=== PATIENT | female | born 1995 | race Two or more races ===

== ENCOUNTER 2017-02-25 21:40 | Inpatient (IN) | payer OTHER ==
[~2017-02-25] VITALS: Ht 160 cm; Wt 74.0 kg
[~2017-02-25 21:40] MED LIST: AMPI500C8 PO; CONCCAP2 PO
[2017-02-25] MEDS ORDERED: LACTATED RINGER'S 1000 ML INJ 1,000 ML IV PRN ×2 (22:26)
[2017-02-25] MEDS ORDERED: LACTATED RINGER'S 1000 ML INJ 1,000 ML IV SCH ×2 (22:26)
--- NOTE | 2017-02-25 22:26 | PD ---
HPI Chief Complaint 39 weeks and 3 days IUP Uterine contractions Travel History International Travel<30 Days: No Contact w/Intl Traveler<30Days: No Known Affected Area: No History of Present Illness HPI Pt is a 21 yo at 39 weeks and 3 days EDC 03-01-2017, care with [facility]. GBS positive in urine. Reports active movements. Denies vaginal bleeding or leaking. Weeks Gestation: 39 Para: 1 : 2 History Past Medical History Medical History: Denies Significant Hx Obstetric History Obstetric History previous term vaginal delivery 2015. GBS positive in urine Past Surgical History Surgical History: No Previous Surgery Family History Family History: Negative Social History Narrative Social History Moravian. Would prefer female for exams. Alcohol Use: No Tobacco Use: No Substance Abuse: No Allergies-Medications (Allergen,Severity, Reaction): Coded Allergies: No Known Allergies (Unverified , 02/15/17) Home Meds Active Scripts Ampicillin (Ampicillin) 500 Mg Cap, 500 MG PO QID for 10 Days, #40 CAP Prov:Yanni Mathias CNM [facility] 02/12/17 Vit W/ Fe Fum-Iron Po (Concept Dha 53.5-38-1 mg) 1 Cap Cap, 1 TAB PO DAILY, #30 BOTTLE 11 Refills Prov:Breanna Epperson [facility] 08/03/16 Review of Systems Except as stated in HPI: all other systems reviewed are Neg Physical Exam Narrative GENERAL: Well-nourished, well-developed patient. SKIN: Warm and dry. HEAD: Normocephalic and atraumatic. EYES: No scleral icterus. No injection or drainage. ENT: No nasal drainage noted. Mucous membranes pink. Airway patent. NECK: Supple, trachea midline. No JVD. CARDIOVASCULAR: Regular rate and rhythm without murmurs, gallops, or rubs. RESPIRATORY: Breath sounds equal bilaterally. No accessory muscle use. BREASTS: Bilateral exam showed no masses , no retractions, no nipple discharge. ABDOMEN/GI: Abdomen soft, non-tender, bowel sounds present, no rebound, no guarding Gravid to [39] weeks size Fundal Height: [39] GENITOURINARY: External Genitalia: intact and normal in appearance BUS glands: [wnl] Cervix: [soft] Dilatation: [6-7cm] per RN female Effacement: [80%] Station: [-1] Presentation: [vertex] Membranes: [intact] Uterine Contractions: [-] FHT's: Category: [I] Baseline: [140] Reactive: [-] Variability: [moderate] Decels: [none] EXTREMITIES: No cyanosis or edema. BACK: Nontender without obvious deformity. No CVA tenderness. NEUROLOGICAL: Awake and alert. Motor and sensory grossly within normal limits. Five out of 5 muscle strength in all muscle groups. Normal speech. Data Data Vital Signs Reviewed: Yes Group B Strep: Positive MDM Medical Record Reviewed: Yes Plan 21yo P1001 at 39 weeks and 3 days. Presents in labor 6-cm dilated per RN. GBS positive. Will admit for labor. Expectant care, will initiate GBS prophylaxis Diagnosis Diagnosis: Primary Impression: 39 weeks gestation of Additional Impression: Admitted to labor and delivery Helder Harvey MD Feb 25, 2017 22:26
[2017-02-25] MEDS ORDERED: MINERAL OIL 10 ML VIAL TOPICAL PRN ×2 (22:30)
[2017-02-25] MEDS ORDERED: CITRIC ACID-SODIUM CITRATE LIQ 30 ML UDC PO SCH ×2 (22:30)
[2017-02-25] MEDS ORDERED: OXYTOCIN 30 UNITS-500ML PREMIX 500 ML IV ONE ×2 (22:30)
[2017-02-25] MEDS ORDERED: LIDOCAINE HCL 1% 50 ML VIAL I-DERMAL PRN ×2 (22:30)
[2017-02-25] MEDS ORDERED: SODIUM CHLORID 0.9% 500 ML INJ 500 ML IV PRN ×2 (22:30)
[2017-02-25] MEDS ORDERED: LIDOCAINE HCL 1% 50 ML VIAL INFIL PRN ×2 (22:30)
[2017-02-25] MEDS ORDERED: PENICILLIN G POTASSIUM INJ 5,000,000 UNITS in SODIUM CHLORIDE 0.9% INJ 100 ML IV ONE ×4 (22:45)
[2017-02-25] MEDS ORDERED: SODIUM CHLOR 0.9% 1000 ML INJ 1,000 ML IV PRN ×2 (22:46)
[2017-02-25 23:00] LABS: AUTOMATED NEUTROPHIL # 11.6 TH/MM3 (1.8-7.7); BASOPHIL # 0.1 TH/MM3 (0-0.2); BASOPHIL % 0.4 % (0.0-2.0); EOSINOPHIL # 0.1 TH/MM3 (0-0.4); EOSINOPHIL % 0.4 % (0.0-4.0); HEMOGLOBIN 13.4 GM/DL (11.6-15.3); LYMPHOCYTE # 1.9 TH/MM3 (1.0-4.8); MEAN CELL VOLUME 89.6 FL (80.0-100.0); MEAN CORPUSCULAR HEMOGLOBIN 29.9 PG (27.0-34.0); MEAN CORPUSCULAR HGB CONC 33.4 % (32.0-36.0); MEAN PLATELET VOLUME 9.8 FL (7.0-11.0); MONO % 6.6 % (0.0-8.0); NEUT % 79.6 % (16.0-70.0); PLATELET COUNT 228 TH/MM3 (150-450); RED BLOOD COUNT 4.46 MIL/MM3 (4.00-5.30); RED CELL DISTRIBUTION WIDTH 14.1 % (11.6-17.2); WHITE BLOOD COUNT 14.6 TH/MM3 (4.0-11.0)
[2017-02-25 23:01] LABS: BILIRUBIN, URINE NEG (NEG); BLOOD, URINE NEG (NEG); GLUCOSE,URINE NEG (NEG); KETONE, URINE TRACE mg/dL (NEG); NITRITE,URINE NEG (NEG); PH, URINE 6.5 (5.0-8.5); SQUAMOUS EPITHELIAL CELL URINE 1 /hpf (0-5); URINE COLOR COLORLESS (YELLW/STRAW); URINE LEUKOCYTE ESTERASE MOD (NEG)
[2017-02-26 01:19] VITALS: RESP 18
[2017-02-26 01:20] VITALS: BP 107/60; PULSE 70
--- NOTE | 2017-02-26 02:41 | HHI.HP ---
HPI Chief Complaint Labor Date Seen: Feb 26, 2017 Travel History International Travel<30 Days: No Contact w/Intl Traveler<30Days: No Known Affected Area: No History of Present Illness HPI Mrs. Figueroa is a 21 y/o at 39/3 weeks gestation presenting with uterine contractions every 2-3 minutes. She endorses good movement, and denies any vaginal bleeding, vaginal discharge, loss of fluid, or dysuria. Currently she has no other complaints and denies complete review of systems. She states that [facility]. She was diagnosed as GBS positive via urine culture and has recently been on ampicillin 4 times a day. 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 Alcohol Use: No Tobacco Use: No Substance Abuse: No Allergies-Medications (Allergen,Severity, Reaction): Coded Allergies: No Known Allergies (Unverified Allergy, Unknown, 02/25/17) Home Meds Active Scripts Ampicillin (Ampicillin) 500 Mg Cap, 500 MG PO QID for 10 Days, #40 CAP Prov:Yanni Mathias CNM [facility] 02/12/17 Vit W/ Fe Fum-Iron Po (Concept Dha 53.5-38-1 mg) 1 Cap Cap, 1 TAB PO DAILY, #30 BOTTLE 11 Refills Prov:Breanna Epperson [facility] 08/03/16 Physical Exam Vital Signs Date Time Temp Pulse Resp B/P (MAP) Pulse Ox O2 Delivery O2 Flow Rate FiO2 02/26/17 01:20 70 107/60 (76) 02/26/17 01:[address] Harvey: GENERAL: Well-nourished, well-developed patient. SKIN: Warm and dry. HEAD: Normocephalic and atraumatic. EYES: No scleral icterus. No injection or drainage. ENT: No nasal drainage noted. Mucous membranes pink. Airway patent. NECK: Supple, trachea midline. No JVD. CARDIOVASCULAR: Regular rate and rhythm without murmurs, gallops, or rubs. RESPIRATORY: Breath sounds equal bilaterally. No accessory muscle use. ABDOMEN/GI: Abdomen soft, non-tender, bowel sounds present, no rebound, no guarding Gravid to [39] weeks size Fundal Height: [39] GENITOURINARY: External Genitalia: intact and normal in appearance BUS glands: [wnl] Cervix: [soft] Dilatation: [6-7cm] per RN female Effacement: [80%] Station: [-1] Presentation: [vertex] Membranes: [intact] Uterine Contractions: [-] FHT's: Category: [I] Baseline: [140] Reactive: [-] Variability: [moderate] Decels: [none] EXTREMITIES: No cyanosis or edema. BACK: Nontender without obvious deformity. No CVA tenderness. NEUROLOGICAL: Awake and alert. Motor and sensory grossly within normal limits. Five out of 5 muscle strength in all muscle groups. Normal speech. Caprini VTE Risk Assessment Caprini VTE Risk Assessment: Mod/High Risk (score >= 2) VTE Pharm Contraindication: High risk for bleeding Caprini Risk Assessment Model Point Value = 1 Point Value = 2 Point Value = 3 Point Value = 5 Age 41-60 Minor surgery BMI > 25 kg/m2 Swollen legs Varicose veins or History of unexplained or recurrent spontaneous Oral contraceptives or hormone replacement Sepsis (< 1 month) Serious lung disease, including pneumonia (< 1 month) Abnormal pulmonary function Acute myocardial infarction Congestive heart failure (< 1 month) History of inflammatory bowel disease Medical patient at bed rest Age 61-74 Arthroscopic surgery Major open surgery (> 45 min) Laparoscopic surgery (> 45 min) Malignancy Confined to bed (> 72 hours) Immobilizing plaster cast Central venous access Age >= 75 History of VTE Family history of VTE Factor V Leiden Prothrombin [id number] Lupus anticoagulant Anticardiolipin antibodies Elevated serum homocysteine Heparin-induced thrombocytopenia Other congenital or acquired thrombophilia Stroke (< 1 month) Elective arthroplasty Hip, pelvis, or leg fracture Acute spinal cord injury (< 1 month) Prophylaxis Regimen Total Risk Factor Score Risk Level Prophylaxis Regimen 0-1 Low Early ambulation 2 Moderate Order ONE of the following: *Sequential Compression Device (SCD) *Heparin 5000 units SQ BID 3-4 Higher Order ONE of the following medications: *Heparin 5000 units SQ TID *Enoxaparin/Lovenox 40 mg SQ daily (WT < 150 kg, CrCl > 30 mL/min) *Enoxaparin/Lovenox 30 mg SQ daily (WT < 150 kg, CrCl > 10-29 mL/min) *Enoxaparin/Lovenox 30 mg SQ BID (WT < 150 kg, CrCl > 30 mL/min) AND/OR *Sequential Compression Device (SCD) 5 or more Highest Order ONE of the following medications: *Heparin 5000 units SQ TID (Preferred with Epidurals) *Enoxaparin/Lovenox 40 mg SQ daily (WT < 150 kg, CrCl > 30 mL/min) *Enoxaparin/Lovenox 30 mg SQ daily (WT < 150 kg, CrCl > 10-29 mL/min) *Enoxaparin/Lovenox 30 mg SQ BID (WT < 150 kg, CrCl > 30 mL/min) AND *Sequential Compression Device (SCD) Data Data Vital Signs Reviewed: Yes Orders Orders Ob (2e) Additional Admit Info (02/25/17 22:15) Admit To Inpatient (02/25/17 ) Code Status (02/25/17 22:26) Vital Signs (Adult) .Per protocol (02/25/17 22:26) Activity Oob Ad Robyn (02/25/17 22:26) Heart (02/25/17 22:26) Amnioinfusion (02/25/17 22:26) Urinary Catheter Management .ONCE (02/25/17 22:26) Diet Liquid (02/26/17 Breakfast) Lactated Ringer's 1000 Ml Inj (Lr 1000 M (02/25/17 22:26) Lactated Ringer's 1000 Ml Inj (Lr 1000 M (02/25/17 22:26) Sodium Chlorid 0.9% 500 Ml Inj (Ns 500 M (02/25/17 22:30) Sodium Chlor 0.9% 1000 Ml Inj (Ns 1000 M (02/25/17 22:46) Lidocaine 1% Inj (50 Ml) (Xylocaine 1% I (02/25/17 22:30) Citric Acid-Sodium Citrate Liq (Bicitra (02/25/17 22:30) Fentanyl Inj (Fentanyl Inj) (02/25/17 22:30) Fentanyl Inj (Fentanyl Inj) (02/25/17 22:30) Penicillin G Potassium Inj (Pfizerpen-G (02/25/17 22:45) Penicillin G Potassium Inj (Pfizerpen-G (02/26/17 03:00) Complete Blood Count With Diff (02/25/17 22:26) Hold Clot (02/25/17 22:26) Abo/Rh Blood Type (02/25/17 22:26) Urinalysis - C+S If Indicated (02/25/17 22:26) Drug Screen, Random Urine (02/25/17 22:26) Resp Oxygen Non Rebreathe Mask (02/25/17 ) ^ Epidural / Intrathecal Infus (02/25/17 22:26) Oxytocin 30 Units-500ml Premix (Pitocin (02/25/17 22:30) Lidocaine 1% Inj (50 Ml) (Xylocaine 1% I (02/25/17 22:30) Light Mineral Oil (Muri-Lube Oil) (02/25/17 22:30) Inpatient Certification (02/25/17 ) Specimen To Be Collected PRN (02/25/17 22:26) Specimen To Be Collected PRN (02/25/17 22:26) Urine Culture (02/25/17 22:25) Group B Strep: Positive Labs Laboratory Tests Test 02/25/17 22:25 02/25/17 22:32 Urine Color COLORLESS Urine Turbidity CLEAR Urine pH 6.5 Urine Specific [place] 1.003 Urine Protein NEG Urine Glucose (UA) NEG Urine Ketones TRACE Urine Occult Blood NEG Urine Nitrite NEG Urine Bilirubin NEG Urine Urobilinogen LESS THAN 2.0 Urine Leukocyte Esterase MOD Urine RBC LESS THAN 1 Urine WBC 13 Urine Squamous Epithelial Cells 1 Microscopic Urinalysis Comment CULTURE INDICATED Urine Opiates Screen NEG Urine Barbiturates Screen NEG Urine Amphetamines Screen NEG Urine Benzodiazepines Screen NEG Urine Cocaine Screen NEG Urine Cannabinoids Screen NEG White Blood Count 14.6 Red Blood Count 4.46 Hemoglobin 13.4 Hematocrit 40.0 Mean Corpuscular Volume 89.6 Mean Corpuscular Hemoglobin 29.9 Mean Corpuscular Hemoglobin Concent 33.4 Red Cell Distribution Width 14.1 Platelet Count 228 Mean Platelet Volume 9.8 Neutrophils (%) (Auto) 79.6 Lymphocytes (%) (Auto) 13.0 Monocytes (%) (Auto) 6.6 Eosinophils (%) (Auto) 0.4 Basophils (%) (Auto) 0.4 Neutrophils # (Auto) 11.6 Lymphocytes # (Auto) 1.9 Monocytes # (Auto) 1.0 Eosinophils # (Auto) 0.1 Basophils # (Auto) 0.1 CBC Comment DIFF FINAL Differential Comment Date/Time Source Procedure Growth Status 02/25/17 22:25 Urine Clean Catch Urine Culture Pending Received Assessment/Plan Problem List: (1) 39 weeks gestation of ICD Codes: Z3A.39 - 39 weeks gestation of Status: Acute (2) Admitted to labor and delivery ICD Codes: Z78.9 - Other specified health status Status: Acute Assessment and Plan Mrs. Figueroa is a 21 y/o at 39/3 weeks gestation presenting with uterine contractions every 2-3 minutes currently in active labor 1. IUP at 39 weeks gestation -Continue routine OB care -Encourage hydration -Continue vitamin -FHT: Category 1, reassuring -Plan to admit for active labor, will augment labor with Pitocin as indicated, orders placed 2. GBS Positive per Urine Culture -Penicillin G ordered for prophylaxis -Defer AROM until prophylactic doses of penicillin G given DW: Dr. Harvey, Dr. Tran Discharge Planning Pending clinical course Quentin Marin MD R2 Feb 26, 2017 02:41
[2017-02-26] MEDS ORDERED: PENICILLIN G POTASSIUM INJ 2,500,000 UNITS in SODIUM CHLORIDE 0.9% INJ 100 ML IV SCH ×4 (03:00)
[2017-02-26 03:42] VITALS: TEMP 97.9
--- NOTE | 2017-02-26 06:02 | HHI.DS ---
Admission Date Feb 25, 2017 at 22:16 Discharge Date: Feb 26, 2017 Admitting Diagnosis 39 weeks and 4 days Diagnosis: (1) 39 weeks gestation of Diagnosis: Principal ICD Codes: Z3A.39 - 39 weeks gestation of Status: Acute Brief History Mrs. Figueroa is a 21 y/o at 39/3 weeks gestation presenting with uterine contractions every 2-3 minutes. She endorses good movement, and denies any vaginal bleeding, vaginal discharge, loss of fluid, or dysuria. Currently she has no other complaints and denies complete review of systems. She states that her care has been with [facility]. She was diagnosed as GBS positive via urine culture and has recently been on ampicillin 4 times a day. Pt was admitted in labor at 6-7cm. GBS prophylaxis was initiated with PCN. Couple have issues with the absence of female provider as attending. A compromise was reached where they eventually agreed to stay, with a male attending, as long as his presence was pre-announced so that she could cover her face prior. After over 4 hours ( after 2 antibiotic doses completed) she was rechecked and found to have made NO further cervical change. Couple decline Pitocin augmentation or AROM. They want to leave. We have reiterated the risks involved in leaving at this advanced dilatation, with possibility of delivery at home, and concerns with rupture at home with GBS carrier status. They state that she is not feeling ANY pain. Contractions are about 5-7 minutes apart. Amniosure was done to document ROM prior to leaving. labor precautions have been re-emphasized. Hospital Course Patient signed out AMA after making no cervical casino change attendant 4 hours, and contractions spacing out. Couple declined augmentation with Pitocin or AROM. Patient was discharged home undelivered. Pt Condition on Discharge: Stable Discharge Disposition: Discharge Home Discharge Instructions Diet Instructions: As Tolerated, No Restrictions Activities You Can Perform: Pelvic Rest, Continue Bedrest (with bathroom privileges) Additional Activity Instruc.: Patient told to watch out for increased frequency and intensity. Watch for vaginal bleeding or leaking. Patient aware no guarantee of female attending if she returns. Helder Harvey MD Feb 26, 2017 06:02
--- NOTE | 2017-02-26 06:02 | HHI.DS ---
Admission Date Feb 25, 2017 at 22:16 Discharge Date: Feb 26, 2017 Admitting Diagnosis 39 weeks and 4 days Diagnosis: (1) 39 weeks gestation of Diagnosis: Principal ICD Codes: Z3A.39 - 39 weeks gestation of Status: Acute Brief History Mrs. Figueroa is a 21 y/o at 39/3 weeks gestation presenting with uterine contractions every 2-3 minutes. She endorses good movement, and denies any vaginal bleeding, vaginal discharge, loss of fluid, or dysuria. Currently she has no other complaints and denies complete review of systems. She states that her care has been with [facility]. She was diagnosed as GBS positive via urine culture and has recently been on ampicillin 4 times a day. Pt was admitted in labor at 6-7cm. GBS prophylaxis was initiated with PCN. Couple have issues with the absence of female provider as attending. A compromise was reached where they eventually agreed to stay, with a male attending, as long as his presence was pre-announced so that she could cover her face prior. After over 4 hours ( after 2 antibiotic doses completed) she was rechecked and found to have made NO further cervical change. Couple decline Pitocin augmentation or AROM. They want to leave. We have reiterated the risks involved in leaving at this advanced dilatation, with possibility of delivery at home, and concerns with rupture at home with GBS carrier status. They state that she is not feeling ANY pain. Contractions are about 5-7 minutes apart. Amniosure was done to document ROM prior to leaving. labor precautions have been re-emphasized. Hospital Course Patient signed out AMA after making no cervical change director 4 hours, and contractions spacing out. Couple declined augmentation with Pitocin or AROM. Patient was discharged home undelivered. Pt Condition on Discharge: Stable Discharge Disposition: Discharge Home Discharge Instructions Diet Instructions: As Tolerated, No Restrictions Activities You Can Perform: Pelvic Rest, Continue Bedrest (with bathroom privileges) Additional Activity Instruc.: Patient told to watch out for increased frequency and intensity. Watch for vaginal bleeding or leaking. Patient aware no guarantee of female attending if she returns. Helder Harvey MD Feb 26, 2017 06:02
--- NOTE | 2017-02-26 06:02 | HHI.DS ---
Admission Date Feb 25, 2017 at 22:16 Discharge Date: Feb 26, 2017 Admitting Diagnosis 39 weeks and 4 days Diagnosis: (1) 39 weeks gestation of Diagnosis: Principal ICD Codes: Z3A.39 - 39 weeks gestation of Status: Acute Brief History Mrs. Figueroa is a 21 y/o at 39/3 weeks gestation presenting with uterine contractions every 2-3 minutes. She endorses good movement, and denies any vaginal bleeding, vaginal discharge, loss of fluid, or dysuria. Currently she has no other complaints and denies complete review of systems. She states that her care has been with [facility]. She was diagnosed as GBS positive via urine culture and has recently been on ampicillin 4 times a day. Pt was admitted in labor at 6-7cm. GBS prophylaxis was initiated with PCN. Couple have issues with the absence of female provider as attending. A compromise was reached where they eventually agreed to stay, with a male attending, as long as his presence was pre-announced so that she could cover her face prior. After over 4 hours ( after 2 antibiotic doses completed) she was rechecked and found to have made NO further cervical change. Couple decline Pitocin augmentation or AROM. They want to leave. We have reiterated the risks involved in leaving at this advanced dilatation, with possibility of delivery at home, and concerns with rupture at home with GBS carrier status. They state that she is not feeling ANY pain. Contractions are about 5-7 minutes apart. Amniosure was done to document ROM prior to leaving. labor precautions have been re-emphasized. Hospital Course Patient signed out AMA after making no cervical manager exchange 4 hours, and contractions spacing out. Couple declined augmentation with Pitocin or AROM. Patient was discharged home undelivered. Pt Condition on Discharge: Stable Discharge Disposition: Discharge Home Discharge Instructions Diet Instructions: As Tolerated, No Restrictions Activities You Can Perform: Pelvic Rest, Continue Bedrest (with bathroom privileges) Additional Activity Instruc.: Patient told to watch out for increased frequency and intensity. Watch for vaginal bleeding or leaking. Patient aware no guarantee of female attending if she returns. Helder Harvey MD Feb 26, 2017 06:02
== END 2017-02-26 06:08 | disposition left against medical advice (07) | DRG 775 ==
LOC: HOBED 21:40 → H2EA 22:16
PROVIDERS: ADMIT Obstetrics & Gynecology; ATTEND Obstetrics & Gynecology
DX: O99.824 Streptococcus B carrier state complicating childbirth (principal); Z53.1 Procedure and treatment not carried out because of patient's decision for reasons of belief and group pressure; Z3A.39 39 weeks gestation of pregnancy
CPT/HCPCS: 80307; 81001; 84112; 85025; 86900; 86901; 87086; J2540; J7120

== ENCOUNTER 2017-02-27 11:22 | Emergency (ER) | payer OTHER ==
--- NOTE | 2017-02-27 12:11 | PD ---
HPI Chief Complaint Previous cervical dilation 2 days ago Date Seen: Feb 27, 2017 Time Seen: 12:07 Travel History International Travel<30 Days: No Contact w/Intl Traveler<30Days: No Known Affected Area: No History of Present Illness HPI 21-year-old who is at 39 weeks 5 days comes in for a cervical check. Patient was seen a couple days ago and she states that she was 6-7 cm at that time but she left AGAINST MEDICAL ADVICE because the physician was male. Patient is group B strep negative and denies any antepartum complications. She' s had a previous vaginal delivery that was also uncomplicated. Patient denies contractions at this time and has an appointment at her provider's office tomorrow. Weeks Gestation: 39 (39.5) Para: 1 : 2 History Past Medical History Medical History: Denies Significant Hx Obstetric History Obstetric History Spontaneous vaginal delivery Past Surgical History Surgical History: No Previous Surgery Family History Family History: Negative Social History Alcohol Use: No Tobacco Use: No Substance Abuse: No Allergies-Medications (Allergen,Severity, Reaction): Coded Allergies: No Known Allergies (Unverified Allergy, Unknown, 02/25/17) Home Meds Active Scripts Ampicillin (Ampicillin) 500 Mg Cap, 500 MG PO QID for 10 Days, #40 CAP Prov:Yanni Mathias CNM [facility] 02/12/17 Vit W/ Fe Fum-Iron Po (Concept Dha 53.5-38-1 mg) 1 Cap Cap, 1 TAB PO DAILY, #30 BOTTLE 11 Refills Prov:Breanna Epperson [facility] 08/03/16 Review of Systems Except as stated in HPI: all other systems reviewed are Neg Physical Exam Narrative GENERAL: Well-nourished, well-developed patient. SKIN: Warm and dry. HEAD: Normocephalic and atraumatic. EYES: No scleral icterus. No injection or drainage. ENT: No nasal drainage noted. Mucous membranes pink. Airway patent. NECK: Supple, trachea midline. No JVD. CARDIOVASCULAR: Regular rate and rhythm without murmurs, gallops, or rubs. RESPIRATORY: Breath sounds equal bilaterally. No accessory muscle use. ABDOMEN/GI: Abdomen soft, non-tender, bowel sounds present, no rebound, no guarding Gravid to [-38] weeks size Fundal Height: [-] GENITOURINARY: External Genitalia: intact and normal in appearance BUS glands: [Normal-] Cervix: [-] Posterior Dilatation: [-] 4 Effacement: [-50] Station: [-3-] Presentation: [-Vertex] Membranes: [intact ] Uterine Contractions: [-Absent] FHT's: Category: [-1] Baseline: [-140] Reactive: [-Moderate] Variability: [-Moderate] Decels: [Absent-] EXTREMITIES: No cyanosis or edema. BACK: Nontender without obvious deformity. No CVA tenderness. NEUROLOGICAL: Awake and alert. Motor and sensory grossly within normal limits. Five out of 5 muscle strength in all muscle groups. Normal speech. Data Data Vital Signs Reviewed: Yes Group B Strep: Positive MDM Medical Record Reviewed: Yes Plan 21-year-old who comes in for a cervical check, patient has no contractions at this time. Cervix has remained unchanged. Patient will return for contractions or pain and precautions regarding labor were discussed. Patient understands that there is no way we could guarantee a female provider nor can we guarantee female anesthesia or neonatology providers. Follow-up with her office tomorrow as scheduled Diagnosis Diagnosis: Primary Impression: 39 weeks gestation of Additional Impression: False labor after 37 completed weeks of gestation Disposition: 01 DISCHARGE HOME Gabriela Lanza MD Feb 27, 2017 12:11
[2017-03-02] MEDS ORDERED: IBUP-232 PO (08:10)
== END 2017-02-27 13:23 | disposition home or self-care (01) ==
LOC: HOBED 11:22
DX: O47.1 False labor at or after 37 completed weeks of gestation (principal); Z3A.39 39 weeks gestation of pregnancy
CPT/HCPCS: 59025

== ENCOUNTER 2017-02-28 19:36 | Emergency (ER) | payer OTHER ==
--- NOTE | 2017-02-28 20:33 | PD ---
HPI Chief Complaint ctx Date Seen: Feb 28, 2017 Time Seen: 20:29 Travel History International Travel<30 Days: No Contact w/Intl Traveler<30Days: No Known Affected Area: No History of Present Illness HPI Pt is a 21y/o @ 39.6wks. She has PNC @ [facility]. She has recently been seen in triage and was 4cm dilated. She previously had been called 7cm and admitted but left AMA due to male provider/cultural differences. She returns today stating that her ctx were 5m apart and painful starting at 6 :30pm. No LOF or VB. +FM. She is GBS+ and was tx'd as an outpt with PO abx. Weeks Gestation: 39 Para: 1 : 2 Last Menstrual Period: Feb 28, 2017 History Past Medical History Medical History: Denies Significant Hx Obstetric History Obstetric History x1 Past Surgical History Surgical History: No Previous Surgery Family History Family History: Negative Social History Alcohol Use: No Tobacco Use: No Substance Abuse: No Allergies-Medications (Allergen,Severity, Reaction): Coded Allergies: No Known Allergies (Unverified Allergy, Unknown, 02/28/17) Home Meds Active Scripts Vit W/ Fe Fum-Iron Po (Concept Dha 53.5-38-1 mg) 1 Cap Cap, 1 TAB PO DAILY, #30 BOTTLE 11 Refills Prov:Breanna Epperson [facility] 08/03/16 Discontinued Scripts Ampicillin (Ampicillin) 500 Mg Cap, 500 MG PO QID for 10 Days, #40 CAP Prov:Yanni Mathias CNM [facility] 02/12/17 Review of Systems Except as stated in HPI: all other systems reviewed are Neg Physical Exam Narrative GENERAL: Well-nourished, well-developed patient. SKIN: Warm and dry. HEAD: Normocephalic and atraumatic. EYES: No scleral icterus. No injection or drainage. ENT: No nasal drainage noted. Mucous membranes pink. Airway patent. ABDOMEN/GI: Abdomen soft, non-tender, gravid EXTREMITIES: No cyanosis NEUROLOGICAL: Awake and alert. Motor and sensory grossly within normal limits. FHTs: 135, +accels, no decels, reactive, moderate variability TOCO: irregular ctx q3-5m CVX: 4/80/-2, unchanged Data Data Vital Signs Reviewed: Yes Orders Orders Vital Signs (Adult) .ON ADMISSION (02/28/17 20:29) ^ Labor Status (02/28/17 20:29) ^ Non Stress Test (02/28/17 20:29) Group B Strep: Positive MDM Plan 21y/o @ 39.6wks with ctx. -- FHTs cat 1 -- ctx irregular -- cvx unchanged Stable for d/c home with precautions. Diagnosis Diagnosis: Primary Impression: 39 weeks gestation of Additional Impression: Uterine contractions during Patient Instructions: General Instructions, Having Your Baby: The Labor Process (GEN) Additional Instructions: RETURN FOR CONTRACTIONS, LOSS OF FLUID (WATER BREAKING), VAGINAL BLEEDING, OR DECREASED MOVEMENT DRINK 8-10 LARGE GLASSES OF WATER EVERY DAY KEEP SCHEDULED APPOINTMENT WITH YOUR PROVIDER Departure Forms: Tests/Procedures Crystal Romeo MD Feb 28, 2017 20:33
--- NOTE | 2017-03-01 00:25 | PD ---
HPI Chief Complaint ctx Date Seen: Mar 01, 2017 Time Seen: 00:24 Travel History International Travel<30 Days: No Contact w/Intl Traveler<30Days: No Known Affected Area: No History of Present Illness HPI Pt is a 21y/o @ 40.0wks. She has PNC @ [facility]. She has recently been seen in triage and was 4cm dilated. She previously had been called 7cm and admitted but left AMA due to male provider/cultural differences. She returned this evening stating that her ctx were 5m apart and painful starting at 6:30pm but cvx was unchanged. She returns now with worsening ctx. +FM, no LOF. Weeks Gestation: 40 Para: 1 : 2 Last Menstrual Period: Mar 01, 2017 History Past Medical History Medical History: Denies Significant Hx Obstetric History Obstetric History x1 Past Surgical History Surgical History: No Previous Surgery Family History Family History: Negative Social History Alcohol Use: No Tobacco Use: No Substance Abuse: No Allergies-Medications (Allergen,Severity, Reaction): Coded Allergies: No Known Allergies (Unverified Allergy, Unknown, 02/28/17) Home Meds Active Scripts Vit W/ Fe Fum-Iron Po (Concept Dha 53.5-38-1 mg) 1 Cap Cap, 1 TAB PO DAILY, #30 BOTTLE 11 Refills Prov:Breanna Epperson [facility] 08/03/16 Discontinued Scripts Ampicillin (Ampicillin) 500 Mg Cap, 500 MG PO QID for 10 Days, #40 CAP Prov:Yanni Mathias CNM [facility] 02/12/17 Physical Exam Narrative GENERAL: Well-nourished, well-developed patient. SKIN: Warm and dry. HEAD: Normocephalic and atraumatic. EYES: No scleral icterus. No injection or drainage. ENT: No nasal drainage noted. Mucous membranes pink. Airway patent. ABDOMEN/GI: Abdomen soft, non-tender, gravid NEUROLOGICAL: Awake and alert. Motor and sensory grossly within normal limits. FHTs: cat 1 TOCO: regular ctx CVX: 100/0 Data Data Vital Signs Reviewed: Yes Orders Orders Vital Signs (Adult) .ON ADMISSION (02/28/17 20:29) ^ Labor Status (02/28/17 20:29) ^ Non Stress Test (02/28/17 20:29) Ed Discharge Order (02/28/17 20:29) Group B Strep: Positive MDM Plan 21y/o @ 40.0wks in active labor. -- admit to L&D -- FHTs cat 1 -- cvx 8100/0 -- CLD, epidural/guzman PRN -- PCN for GBS+ -- anticipate Diagnosis Diagnosis: Primary Impression: 39 weeks gestation of Additional Impressions: Uterine contractions during Positive GBS test Disposition: 01 DISCHARGE HOME Condition: Stable Patient Instructions: General Instructions, Having Your Baby: The Labor Process (GEN) Additional Instructions: RETURN FOR CONTRACTIONS, LOSS OF FLUID (WATER BREAKING), VAGINAL BLEEDING, OR DECREASED MOVEMENT DRINK 8-10 LARGE GLASSES OF WATER EVERY DAY KEEP SCHEDULED APPOINTMENT WITH YOUR PROVIDER Departure Forms: Tests/Procedures Crystal Romeo MD Mar 01, 2017 00:25
[2017-03-02] MEDS ORDERED: IBUP-232 PO (08:10)
== END 2017-02-28 20:35 | disposition home or self-care (01) ==
LOC: HOBED 19:36
DX: O99.820 Streptococcus B carrier state complicating pregnancy (principal); Z3A.39 39 weeks gestation of pregnancy
CPT/HCPCS: 59025